=== PATIENT | male | born 1980 | race Caucasian/White ===

== ENCOUNTER 2024-11-08 00:08 | Emergency (ER) | payer OTHER, SELFPAY ==
[2024-11-08 00:15] VITALS: BP 160/98; PULSE 103; RESP 20; TEMP 36.7; O2SAT 98; BMI 33.9
--- NOTE | 2024-11-08 00:32 | PC.NURSE ---
Wound pressure irrigated with 500ml NS and 60ml betadine mixed.
--- NOTE | 2024-11-08 00:34 | DI.RAD.S_ITS ---
PROCEDURE: XR FOOT RT 2V INDICATIONS: puncture wound with nail TECHNIQUE: 2 views of the foot were acquired. COMPARISON: None. FINDINGS: Bones: No fractures or dislocations. No suspicious bony lesions. Soft tissues: No radiopaque foreign body is seen. No gross subcutaneous emphysema. IMPRESSION: No acute right foot fracture or dislocation. No radiopaque foreign bodies. Dictated by: Sergei Mccurdy M.D. on 11/08/2024 at 0:58 Approved by: Sergei Mccurdy M.D. on 11/08/2024 at 0:58
[2024-11-08] MEDS: TET,DIPH,PERTUSS(ACELL),VAC/PF 0.5 ML SYRINGE IM (00:38)
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
[2024-11-08] MEDS: CIPROFLOXACIN 250 MG TABLET 500 MG PO (01:59)
[2024-11-08 02:02] VITALS: BP 166/81; PULSE 91; RESP 16; O2SAT 97
== END 2024-11-08 02:15 | disposition home or self-care (01) ==
PROVIDERS: Emergency Provider Emergency Medicine
DX: S91.331A Puncture wound without foreign body, right foot, initial encounter (principal); W45.0XXA Nail entering through skin, initial encounter; Z23 Encounter for immunization
CPT/HCPCS: 73620; 90471; 99283; 90715